=== PATIENT | female | born 1950 | race Caucasian/White ===

== ENCOUNTER 2020-04-19 06:10 | Day surgery (SDC) | payer MEDICARE, SELFPAY ==
[2020-04-13 10:41] VITALS: BMI 30.8
--- NOTE | 2020-04-15 08:05 | MHC.SHP ---
Pre-Procedural Eval Section A The patient is an INPATIENT: No The History & Physical has been completed within 30 days and I have reviewed it.: Yes Section B Chief Complaint: Cataract Left Eye Allergies: Allergies Allergy/AdvReac Type Severity Reaction Status Date / Time nitrofurantoin Allergy Fever, Verified 04/13/20 10:33 [From Macrodantin] bad rxn- had to go to ER Plan Diagnosis/Plan: Unchanged Patient has been examined and remains a candidate for the planned procedure
--- NOTE | 2020-04-16 13:17 | HO.ANESPROP2 ---
Documented by User: Laura Isaac 04/16/20 13:18 HPI - Anesthesia Eval Consult details Narrative: 69yo F for Cataract Extraction PCP cleared [facility] [place] Past Medical History Medical History Anxiety Depression Elevated cholesterol GERD (gastroesophageal reflux disease) History of bradycardia HTN (hypertension) Surgical History Surgical History History of tubal ligation Hx of tonsillectomy Social History Social History Smoking Status: Former smoker Smoking Quit Date: 2014 Second Hand Smoke Exposure: No Use of substances other than those prescribed or required for medical reasons: No Have you been hit, kicked, punched, or otherwise hurt by someone within the past year? If so, by whom?: No Advance Directives: No Advance Directives Information Provided: No Advance Directives on File: No Recently lost weight without trying: No Meds Allergies Allergy/AdvReac Type Severity Reaction Status Date / Time nitrofurantoin Allergy Fever, Verified 04/13/20 10:33 [From Macrodantin] bad rxn- had to go to ER Home Medications Medication Instructions Recorded Confirmed Type acetaminophen [Tylenol] 650 mg PO BEDTIME 04/13/20 04/13/20 History atorvastatin 20 mg PO DAILY 04/13/20 04/13/20 History clonazepam 0.5 mg PO BEDTIME 04/13/20 04/13/20 History coenzyme Q10 [CoQ-10] 100 mg PO DAILY 04/13/20 04/13/20 History fluoxetine 10 mg PO DAILY 04/13/20 04/13/20 History hydrochlorothiazide 12.5 mg PO DAILY 04/13/20 04/13/20 History lisinopril 40 mg PO DAILY 04/13/20 04/13/20 History multivitamin 1 cap PO DAILY 04/13/20 04/13/20 History omega-3 fatty acids-vitamin E 1 cap PO 04/13/20 History [Fish Oil] omeprazole 20 mg PO DAILY 04/13/20 04/13/20 History trazodone 50 mg PO BEDTIME 04/13/20 04/13/20 History Exam Exam Date and Time: April 16, 2020 1317 Height,Weight and Vital Signs: Height 5 ft Weight 71.668 kg Assessment and Plan Assessment Anesthesia Assessment: Chart Reviewed Documented by User: Analilia Varma 04/19/20 07:16 PMFSH Past Medical History Medical History Anxiety Depression Elevated cholesterol GERD (gastroesophageal reflux disease) History of bradycardia HTN (hypertension) Surgical History Surgical History History of tubal ligation Hx of tonsillectomy Social History Social History Smoking Status: Former smoker Smoking Quit Date: 2014 Second Hand Smoke Exposure: No Use of substances other than those prescribed or required for medical reasons: No Have you been hit, kicked, punched, or otherwise hurt by someone within the past year? If so, by whom?: No Advance Directives: No Advance Directives Information Provided: No Advance Directives on File: No Recently lost weight without trying: No Meds Allergies Allergy/AdvReac Type Severity Reaction Status Date / Time nitrofurantoin Allergy Fever, Verified 04/13/20 10:33 [From Macrodantin] bad rxn- had to go to ER Home Medications Medication Instructions Recorded Confirmed Type acetaminophen [Tylenol] 650 mg PO BEDTIME 04/13/20 04/13/20 History atorvastatin 20 mg PO DAILY 04/13/20 04/13/20 History clonazepam 0.5 mg PO BEDTIME 04/13/20 04/13/20 History coenzyme Q10 [CoQ-10] 100 mg PO DAILY 04/13/20 04/13/20 History fluoxetine 10 mg PO DAILY 04/13/20 04/13/20 History hydrochlorothiazide 12.5 mg PO DAILY 04/13/20 04/13/20 History lisinopril 40 mg PO DAILY 04/13/20 04/13/20 History multivitamin 1 cap PO DAILY 04/13/20 04/13/20 History omega-3 fatty acids-vitamin E 1 cap PO 04/13/20 History [Fish Oil] omeprazole 20 mg PO DAILY 04/13/20 04/13/20 History trazodone 50 mg PO BEDTIME 04/13/20 04/13/20 History Exam Airway Mallampati Class: I (Caps) TM Dist: >3cm Neck ROM: Full Heart: RRR Lungs: CTa Bl Assessment and Plan Assessment Anesthesia Assessment: Anesthesia Plan Discussed and Chart Reviewed Final Anesthetic Review NPO: Yes ASA Class: II Final Preanesthetic Review: Consent Obtained/Reviewed and Anes Risks/Benef Reviewed Patient Risk: Low Procedure Risk: Low Anesthetic Plan Anesthetic Plan: MAC: Disposition: Standard PACU
[2020-04-19 07:13] VITALS: BP 180/81; PULSE 77; RESP 16; TEMP 36.6; O2SAT 99
[2020-04-19] MEDS: Tetracaine HCl/PF 0.5% Oph Sol 4 ML DROPS 1 DROP EYE-LEFT (07:18)
[2020-04-19] MEDS: Tropicamide 1 % Ophth Sol 3 ML BTL 1 DROP EYE-LEFT ×3 (07:22→07:29)
--- NOTE | 2020-04-19 08:17 | HO.PNOPHT ---
Ophthalmology Procedure Procedure Ophthalmology Viscoelastic: Healdarryl Phillipt Dual Pack Pro Ophthalmology Lenses: TECNIS [id number] (16) Procedure Notes: PREOPERATIVE DIAGNOSIS: Decreased visual acuity left eye secondary to cataract and glaucoma POSTOPERATIVE DIAGNOSIS: Same PROCEDURE: Left cataract extraction with intraocular lens insertion and trabeculectomy, left eye SURGEON: Juan Ohara M.D. ANESTHESIA: Topical/MAC ESTIMATED BLOOD LOSS: None COMPLICATIONS: None After obtaining informed consent, the patient was brought to the operating room suite and placed in the supine position. After adequate sedation per anesthesia, topical drops of Tetracaine were given to the left eye. The eye was then prepped and draped in the usual sterile fashion. The operating room microscope was then positioned over the left eye and a lid speculum placed. 2% Lidocaine was instilled subconjunctivally. After awaiting 30 seconds, a paracentesis was created superiorly. Hemostasis was then achieved using wet field cautery. Mitomycin .4mg/ml was then placed in the conjunctival pocket and held in place for two minutes. The subconjunctival pocket was then irrigated copiously with 20 mls of BSS. Paracentesis was then created. Viscoelastic was then instilled into the anterior chamber. A crescent blade was then utilized to create a partial thickness sclera wound followed by advancement to clear cornea with the crescent blade. A keratome was then utilized to enter the anterior chamber. Capsulotomy forceps were then utilized to create a continuous circular tear capsulotomy. Hydrodissection and hydrodelineation were carried out until adequate mobilization of the nucleus occurred. Phacoemulsification was utilized to remove the dense central nucleus followed by removal of remnant cortical material utilizing the automated aspiration irrigation unit. Viscoelastic was then instilled into the posterior capsular bag followed by placement of a posterior chamber intraocular lens. Attention was then directed to create a trabeculectomy. A Arti punch was then utilized to create the trabeculectomy. The residual Viscoelastic was then removed utilizing the automated IA machine. The egress of aqueous was evaluated and found to be appropriate. The conjunctiva was then closed with a 9-0 vicryl suture. BSS was then instilled into the anterior chamber creating a superior bleb, without obvious leakage. Intracameral injection of Vigamox 0.3%, 0.1 ml and subtenon injection of Kenalog-40 0.2 ml was given followed by an atropine drop. The patient tolerated the procedure well and will be followed up in the a.m.
[2020-04-19 08:18] VITALS: BP 182/74; PULSE 64; RESP 18; TEMP 36.4; O2SAT 99
--- NOTE | 2020-04-19 08:18 | HO.PNOPHT ---
Ophthalmology Procedure Procedure Ophthalmology Viscoelastic: Judi Phillipt Dual Pack Pro Ophthalmology Lenses: TECNIS [id number] (16) Procedure Notes: PREOPERATIVE DIAGNOSIS: Decreased visual acuity left eye secondary to cataract POSTOPERATIVE DIAGNOSIS: Same PROCEDURE: Left cataract extraction with intraocular lens insertion SURGEON: Juan Ohara M.D. ANESTHESIA: Topical/MAC ESTIMATED BLOOD LOSS: None COMPLICATIONS: None After obtaining informed consent, the patient was brought to the operation room suite and placed in the supine position. After adequate sedation per anesthesia, topical drops of Tetracaine were given to the left eye. The eye was then prepped and draped in the usual sterile fashion. The operating room microscope was then positioned over the operative eye and a lid speculum placed. A paracentesis was created. Viscoelastic was then instilled into the anterior chamber. A three plane incision was then created temporally, utilizing a 2.85 mm keratome. Capsulotomy forceps were then utilized to create a circular tear capsulotomy. Hydrodissection and hydrodelineation were carried out until adequate mobilization of the nucleus occurred. Phacoemulsification was then utilized to remove the dense central nucleus followed by removal of the cortical material utilizing the automated aspiration irrigation unit. Viscoat elastic was instilled into the posterior capsular bag followed by placement of a posterior chamber intraocular lens without difficulty. The residual Viscoat elastic was then removed utilizing the automated IA machine. The wound was check and found to be watertight. The patient tolerated the procedure well and the lid speculum was removed. Intracameral injection of Vigamox 0.1 mL followed by a subtenon injection of Kenalog-40 0.2 mL were administered. The patient will be seen in the a.m.
== END 2020-04-19 09:07 | disposition home or self-care (01) ==
PROVIDERS: PCP Family Medicine; Visit Provider Ophthalmology
PROC: (CPT 66985; principal; 2020-04-19 08:10)
DX: H25.12 Age-related nuclear cataract, left eye (principal); H35.033 Hypertensive retinopathy, bilateral; I10 Essential (primary) hypertension; H52.4 Presbyopia; Z79.899 Other long term (current) drug therapy; Z87.891 Personal history of nicotine dependence
CPT/HCPCS: 66984; J2250; J3010; J3300; V2632